=== PATIENT | female | born 1970 | race Caucasian/White ===

== ENCOUNTER 2019-06-29 09:32 | Outpatient (CLI) | payer BC, SELFPAY ==
--- NOTE | ~2019-06-29 | XR_ITS ---
EXAMINATION: XR chest 2V DATE: 06/29/2019 09:49 INDICATION: Shortness of breath TECHNIQUE: Frontal and lateral views of the chest are obtained COMPARISON: 11/04/2018 FINDINGS: The lungs are free of acute opacities. There is no pleural effusion or pneumothorax. The ca rdiomediastinal silhouette is normal. There is mild thoracic spondylosis. A right internal jugular Po rt-A-Cath ends with its tip in the superior vena cava. IMPRESSION: 1. No acute cardiopulmonary abnormality. Reviewed, dictated and finalized at location A.
== END 2019-06-29 09:33 | disposition home or self-care (01) ==
PROVIDERS: Visit Provider Internal Medicine Hematology & Oncology
DX: R06.02 Shortness of breath (principal)
CPT/HCPCS: 71046

== ENCOUNTER 2019-07-13 14:57 | Outpatient (CLI) | payer BC, SELFPAY ==
--- NOTE | ~2019-07-13 | CT_ITS ---
EXAMINATION: CT chest w con DATE: 07/13/2019 15:24 INDICATION: Shortness of breath, history of melanoma TECHNIQUE: Transaxial computed tomographic images of the chest were obtained after the administration of 75 cc of Omnipaque 350 intravenous contrast. The dose-length product (DLP) was 160.20 mGy-cm. Ite rative reconstruction was used. COMPARISON: 09/16/2018 FINDINGS: There is mild emphysema. A 2 mm nodule is noted in the left upper lobe on image 41. There i s dependent atelectasis of the lungs. No focal airspace opacity is identified. There is no pleural ef fusion or pneumothorax. A right internal jugular Port-A-Cath ends with its tip in the distal superior vena cava. No pathologically enlarged thoracic lymph nodes are identified. The heart size is normal. There is multinodular goiter of the right thyroid lobe. There is a 1.4 cm hypoattenuating area of th e liver in liver segment IV. A bone island is noted in the T6 vertebral body on the left. IMPRESSION: 1. Mild emphysema. 2. Indeterminate hypoattenuating lesion of the liver. Although finding is not definitely identified o n the comparison examination, this could be due to the absence of intravenous contrast on the PET/CT. Follow-up by CT or MRI without and with contrast in six months is recommended. 3. 2 mm left upper lobe nodule. Reviewed, dictated and finalized at location A. IMPRESSION: 1. Mild emphysema. 2. Indeterminate hypoattenuating lesion of the liver. Although finding is not d efinitely identified on the comparison examination, this could be due to the ab sence of intravenous contrast on the PET/CT. Follow-up by CT or MRI without and with contrast in six months is recommended. 3. 2 mm left upper lobe nodule.
== END 2019-07-13 14:58 | disposition home or self-care (01) ==
LOC: ANHIMG 15:02
PROVIDERS: PCP Family Medicine; Visit Provider Internal Medicine Hematology & Oncology
DX: R06.02 Shortness of breath (principal); J43.9 Emphysema, unspecified; R91.8 Other nonspecific abnormal finding of lung field
CPT/HCPCS: 71260; Q9967

== ENCOUNTER 2020-01-09 09:00 | Outpatient (CLI) | payer BC, SELFPAY ==
--- NOTE | ~2020-01-09 | CT_ITS ---
EXAMINATION: CT chest abdomen pelvis w con DATE: 01/09/2020 09:51 INDICATION: Malignant melanoma of the left lower limb TECHNIQUE: Computed tomography (CT) of the chest, abdomen, and pelvis was performed with 100 mL Omnip aque-350 intravenous contrast. Automated exposure control and iterative reconstruction technique were employed. The dose-length product was 431.77 mGy-cm. COMPARISON: PET/CT dated 09/16/2018 FINDINGS: CHEST CT: Right internal jugular central venous port catheter with distal tip at the superior cavoatrial juncti on. Mild emphysema. No interval change in a 2 mm left upper lobe nodule most likely sequela of old gr anulomatous disease. Minimal dependent atelectasis in the left bilateral lower lobes. No pulmonary ed vasu, pleural effusion or pneumothorax. Heart size is normal. No pericardial effusion. No pathological ly enlarged thoracic lymphadenopathy. Unchanged T6 bone island ABDOMEN/PELVIS CT: There are couple low-attenuation likely hepatic cysts in the left and right hepatic lobes which are w ithout significant interval change. There is additional 10 mm hypoenhancing lesion at the junction of segments 4A and 4B of the liver which appears slightly smaller than the prior study at which time it measured 1.4 cm. There is a 7 mm hypoenhancing lesion in segment 5 of the liver which appears slight ly decreased in size since the prior study at which time it measured approximately 10 mm. Gallbladder , pancreas, bilateral adrenal glands and right kidney are normal. 1.2 cm cyst at the lower pole of th e left kidney. Small region of cortical scarring at the upper pole of the left kidney. Interval decre ase in size of a now 8 mm, previously 1.7 cm hypoenhancing lesion in the caudal aspect of the spleen. No abnormal bowel wall thickening or obstruction. 3.8 and 1.7 cm fibroids in the fundus of the antev erted uterus. T-shaped IUD in expected position within the uterus. Bladder is normal. No free intrape ritoneal gas or fluid. No pathologically enlarged abdominal or pelvic lymphadenopathy. Mild bilateral hip osteoarthritis. Suspicious lytic or blastic bone lesions. IMPRESSION: 1. Decrease in size of a couple hypoenhancing hepatic lesions which could represent response to treat ment of metastatic disease. Correlate with clinical history. 2. IUD in expected position within a fibroid uterus. Reviewed, dictated and finalized at location B. IMPRESSION: 1. Decrease in size of a couple hypoenhancing hepatic lesions which could repre sent response to treatment of metastatic disease. Correlate with clinical histo ry. 2. IUD in expected position within a fibroid uterus.
== END 2020-01-09 09:01 | disposition home or self-care (01) ==
PROVIDERS: Visit Provider Internal Medicine Hematology & Oncology
DX: C43.72 Malignant melanoma of left lower limb, including hip (principal); K76.9 Liver disease, unspecified
CPT/HCPCS: 71260; 74177; Q9967

== ENCOUNTER 2020-03-12 08:43 | Outpatient (CLI) | payer BC, SELFPAY ==
--- NOTE | ~2020-03-12 | CT_ITS ---
EXAMINATION: CT abdomen pelvis w con DATE: 03/12/2020 09:26 INDICATION: Malignant neoplasm of the left lower extremity. Melanoma. TECHNIQUE: Computed tomography (CT) of the abdomen and pelvis was performed with 100 cc Omnipaque 350 intravenous contrast. The dose-length product was 408.54 mGy-cm. Automated exposure control and iter ative reconstruction technique were employed. COMPARISON: CT dated 01/09/2020 FINDINGS: Heart size normal. No significant pleural or pericardial effusion. Lung bases unremarkable. Slight interval decrease in size of hypoenhancing lesion left hepatic lobe near the falciform ligamen t measuring 9 mm compared with 12 mm on prior examination, image 47. Additional hypoenhancing lesions are stable. The spleen, pancreas, adrenal glands and kidneys are unremarkable. Gallbladder is presen t. There is an IUD in the endometrium. There is a 3 cm left adnexal cyst, likely ovarian. The spleen, pancreas, adrenal glands and right kidney are unremarkable. There is a subcentimeter hypo density of the left kidney, most likely benign cysts. Gallbladder is present. There is atherosclerosi s without evidence for aneurysm or dissection. No lymphadenopathy. Gallbladder is present. There are probable uterine fibroids. Mild lumbar spondylosis. No osteolytic or osteoblastic lesions. IMPRESSION: 1. Decreased size of hypoenhancing lesion left hepatic lobe. Additional smaller hypoenhancing lesions of the liver are stable. These findings may represent interval response to therapy of metastatic dis ease. 2: Otherwise, no significant interval change. Reviewed, dictated and finalized at location A. ATRIC TECHNICIAN IMPRESSION: 1. Decreased size of hypoenhancing lesion left hepatic lobe. Additional smaller hypoenhancing lesions of the liver are stable. These findings may represent in terval response to therapy of metastatic disease. 2: Otherwise, no significant interval change.
[2020-03-13 11:23] LABS: Estimated Glomerular Filt Rate > 60
== END 2020-03-12 08:44 | disposition home or self-care (01) ==
PROVIDERS: Visit Provider Internal Medicine Hematology & Oncology
DX: C43.72 Malignant melanoma of left lower limb, including hip (principal)
CPT/HCPCS: 74177; Q9967

== ENCOUNTER 2020-03-31 01:22 | Outpatient (CLI) | payer BC, SELFPAY ==
[2020-03-31 20:09] LABS: SARS-CoV-2 RNA PCR Negative
== END 2020-03-31 01:23 | disposition home or self-care (01) ==
LOC: ANHCOVIDDT 01:22
PROVIDERS: Visit Provider Plastic Surgery
DX: Z01.818 Encounter for other preprocedural examination (principal); Z20.828 Contact with and (suspected) exposure to other viral communicable diseases
CPT/HCPCS: C9803; U0003

== ENCOUNTER 2020-04-04 01:13 | Day surgery (SDC) | payer BC, SELFPAY ==
[2020-03-28 14:22] VITALS: BMI 26.3
--- NOTE | 2020-04-04 07:19 | WPDHPUPDATE1 ---
History and Physical Update Update Date/Time: 04/04/20 07:19 History and Physical has been reviewed, including an updated exam of the patient. There are NO changes in the patient's condition. Risks, benefits, and alternatives have been discussed and questions answered. Patient agrees to proceed with procedure.
[2020-04-04 10:19] VITALS: BP 149/91; PULSE 98; RESP 20; TEMP 36.7; O2SAT 100
[2020-04-04] MEDS: LACTATED RINGERS 1,000 ML 30 ML IV CONT (11:03)
--- NOTE | 2020-04-04 12:01 | WPDANESEPPF ---
Anes - Initial Pre Proc Eval Procedure: Operation Date: 04/04/20 13:30 Proposed Procedures p Excision Of Pigmented Neoplasm Left Medial Forefoot - Franco Holman MD Date/Time: 04/04/20 12:01 Surgeon: Franco Holman MD Pre Op Diagnosis: Pigmented Neoplasm Left Medial Forefoot Patient Data Age: 49 Gender: F Height: 5 ft 2 in Weight: 65.2 kg Last Vital Signs Temp 98.1 F 04/04/20 10:19 Pulse 98 04/04/20 10:19 Resp 20 04/04/20 10:19 BP 149/91 H 04/04/20 10:19 Pulse Ox 100 04/04/20 10:19 Allergies Allergy/AdvReac Type Severity Reaction Status Date / Time diphenhydramine Allergy Severe Itching Verified 04/04/20 11:13 ketorolac Allergy Severe Itching Verified 04/04/20 11:13 fentanyl Allergy Intermediate Hives Verified 04/04/20 11:13 adhesive tape Allergy Mild Rash Verified 04/04/20 11:13 Home Medications Medication Instructions Recorded Confirmed Type aspirin [Aspir-81] 81 mg PO DAILY 06/01/19 04/04/20 History amlodipine 10 mg PO HS 09/21/19 04/04/20 History desoximetasone [Topicort] 1 applic TOPICAL DAILY PRN 09/21/19 04/04/20 History Patient hx anesthesia problems: none Family hx anesthesia problems: none PMFSH Past Medical History Medical History (Updated 04/04/20 @ 12:01 by Aaron Pearson MD) Hypertension Malignant melanoma of left lower extremity finished chemotherapy in 08/2019 Social History Social History Smoking packs per day: 1 Smoking cigarettes per day: 20.0 Years smoked: 35 Smoking pack-years: 35.00 Smoking status: Former smoker Tobacco type: cigarettes Second hand tobacco smoke exposure: No Smoking end date: 12/28/18 Alcohol intake: never Substance use: never Substance use type: does not use Living arrangements: with family Spiritual care concerns: No Anes - Eval Final PreProcedure Day of Procedure 04/04/20 12:01 Patient weight: overweight Heart: regular rate and rhythm Lungs: clear to auscultation Airway: Mallampati scale class II Neurological: alert and oriented Last oral intake: >/= 8 hours ASA classification: III Emergent: no Anesthetic plan: proceed Anesthesia type and monitoring: general GIVS and standard monitoring Informed Consent: The patient's anesthetic plan and its attendant risks and benefits were discussed with the patient/family/POA. Questions were solicited and answers provided to the satisfaction of the patient/family/POA.
[2020-04-04] MEDS: LIDO 1%/EPINEPHRINE 1:100,000 50 ML VIAL INFILTRATE (12:38)
[2020-04-04 13:04] VITALS: BP 125/83; PULSE 103; RESP 14; O2SAT 94
--- NOTE | 2020-04-04 13:18 | PM.PROC ---
Procedure Note - Detailed Date of procedure: 04/04/20 Pre-op diagnosis: Pigmented Neoplasm Left Medial Forefoot Post-op diagnosis: same Procedure performed: 2.5 cm excision of pigmented neoplasm of left medial forefoot with simple repair 3 cm.. Description of procedure: The appropriate site on patient left medial forefoot was marked in the holding area. She was taken to the operating room and placed supine on the operating table. She was given IV sedation. The foot was prepped and draped in usual fashion. The time-out was held and confirmed. The site was marked for excision on the medial forefoot over the 1st metatarsal head. The site was locally infiltrated with 1% lidocaine with epinephrine. No tourniquet was used. The excision was carried out with a 15 blade encompassing all areas of pigmentation. Specimen sent fresh to pathology for permanent section. The wound edges were undermined 3 mm on all sides and the skin closed with interrupted 3-0 nylon sutures. She was discharged with instructions in wound care and follow-up. A prescription was sent to her pharmacy for tramadol 50 mg 8. Anesthesia: MAC Surgeon: Franco Holman MD Drains: No Packing: No Pathology: yes Complications: No immediate complications Condition: stable Disposition: same day
[2020-04-04 13:30] VITALS: BP 127/82; PULSE 87; RESP 20
[2020-04-04 14:00] VITALS: BP 138/84; PULSE 87; RESP 18
[2020-04-04 14:13] VITALS: BP 137/82; PULSE 87; RESP 20
== END 2020-04-04 14:17 | disposition home or self-care (01) ==
PROVIDERS: Visit Provider Plastic Surgery
PROC: (CPT 11423; principal; 2020-04-04 13:30)
DX: S90.822A Blister (nonthermal), left foot, initial encounter (principal); X58.XXXA Exposure to other specified factors, initial encounter; I10 Essential (primary) hypertension; Z87.891 Personal history of nicotine dependence; Z85.820 Personal history of malignant melanoma of skin; Z92.21 Personal history of antineoplastic chemotherapy
CPT/HCPCS: 11423; 88305; A9270; J1100; J2250; J2405; J2704; J3010; J7120

== ENCOUNTER 2020-07-13 07:25 | Outpatient (CLI) | payer BC, SELFPAY ==
--- NOTE | ~2020-07-13 | CT_ITS ---
EXAMINATION: CT abdomen pelvis w con INDICATION: History of malignant melanoma of the left lower extremity including hip TECHNIQUE: Computed tomographic images of the abdomen and pelvis were obtained after the administrati on of 100 cc of Omnipaque 350 intravenous contrast. The dose-length product (DLP) was 338.99 mGy-cm. Automated exposure control and iterative reconstruction technique were employed. COMPARISON: 03/12/2020 FINDINGS: Minimal dependent atelectasis is present in the lung bases. The heart size is normal. There is a stable 7 mm hypoattenuating lesion of the right hepatic lobe on image 36. A stable 10 mm lesion is seen at the junction of liver segments Nancy and IVb on image 46. There is a cyst in the left hepat ic lobe. No new liver lesions are identified. The spleen, pancreas, gallbladder, and adrenal glands a re normal. The right kidney is unremarkable. There is a 1.3 cm cyst in the lower pole of the left kid alycia. There is calcified atherosclerosis of the aorta and many of the other arteries. No pathologicall y enlarged abdominal or pelvic lymph nodes are identified. There is no free intraperitoneal gas or ev idence of bowel obstruction. Surgical changes are noted in the left groin area. An IUD is present in the uterus in expected position. There is a fibroid in the anterior body of the uterus. There is a fa t-containing umbilical hernia. IMPRESSION: 1. Stable liver lesions. Treated metastatic disease is a consideration. Reviewed, dictated and finalized at location B.
[2020-07-13 08:06] LABS: Estimated Glomerular Filt Rate > 60
== END 2020-07-13 07:26 | disposition home or self-care (01) ==
PROVIDERS: Visit Provider Internal Medicine Hematology & Oncology
DX: C43.72 Malignant melanoma of left lower limb, including hip (principal); K76.89 Other specified diseases of liver
CPT/HCPCS: 74177; Q9967

== ENCOUNTER 2020-10-08 07:51 | Outpatient (CLI) | payer BC, SELFPAY ==
--- NOTE | ~2020-10-08 | CT_ITS ---
EXAMINATION: CT abdomen pelvis w con DATE: 10/08/2020 08:42 INDICATION: Malignant melanoma of left lower extremity. TECHNIQUE: Computed tomography (CT) of the abdomen and pelvis was performed with 100 mL Omnipaque 350 intravenous contrast. Automated exposure control and iterative reconstruction technique were employe d. The dose-length product was 388.23 mGy-cm. COMPARISON: CT abdomen and pelvis 07/13/2020, 01/09/20, PET/CT 09/16/18 FINDINGS: The visualized portions of the lung bases demonstrate mild atelectasis. No pleural effusion . The heart size is normal. No pericardial effusion. There is a 12 mm lesion in left hepatic lobe wit hout change from 09/16/2018 without increased activity on prior PET, likely benign. There are low-atte nuation lesions in the liver measuring up to 7 mm, stable from 01/09/20, likely benign. The gallbladd er, spleen, pancreas, adrenal glands, and right kidney are normal. There is a 12 mm cyst in left kidn ey. There is an intrauterine device in expected position. There is a 4.5 cm fibroid in the uterus. Th ere are no dilated loops of bowel. The appendix is not visualized. There are no pathologically enlarg ed lymph nodes. There is no free intraperitoneal fluid. There is mild lumbar spondylosis. IMPRESSION: 1. No specific evidence of metastatic disease. Reviewed, dictated and finalized at location A.
== END 2020-10-08 07:52 | disposition home or self-care (01) ==
PROVIDERS: Visit Provider Internal Medicine Hematology & Oncology
DX: C43.72 Malignant melanoma of left lower limb, including hip (principal)
CPT/HCPCS: 74177; Q9967

== ENCOUNTER 2021-01-30 07:43 | Outpatient (CLI) | payer BC, SELFPAY ==
--- NOTE | ~2021-01-30 | CT_ITS ---
EXAMINATION: CT abdomen pelvis w con INDICATION: Malignant melanoma of the left lower extremity TECHNIQUE: Computed tomographic images of the abdomen and pelvis were obtained after the administrati on of 100 cc of Omnipaque 350 intravenous contrast. The dose-length product (DLP) was 454.03 mGy-cm. Automated exposure control and iterative reconstruction technique were employed. COMPARISON: 10/08/2020 FINDINGS: The lung bases are clear. The heart size is normal. There is a stable cyst in the left hepa tic lobe. A stable 10 mm lesion is present at the junction of liver segments Nancy and IVb. There is a stable 7 mm hypoattenuating lesion of the right hepatic lobe on image 48. No new liver lesions are id entified. The spleen, pancreas, gallbladder, and adrenal glands are normal. The right kidney is unrem arkable. There is a 1.2 cm cyst of the left kidney lower pole. No pathologically enlarged abdominal o r pelvic lymph nodes are identified. There is no free intraperitoneal gas or evidence of bowel obstru ction. Enhancing uterine fibroids measure up to 4 cm. An IUD is in expected position. Surgical clips are noted anteriorly in the left proximal thigh. There is mild lumbar spondylosis. IMPRESSION: 1. No definite evidence of metastatic disease. Reviewed, dictated and finalized at location B.
== END 2021-01-30 07:44 | disposition home or self-care (01) ==
LOC: ANHIMG 07:47
PROVIDERS: Visit Provider Internal Medicine Hematology & Oncology
DX: C43.72 Malignant melanoma of left lower limb, including hip (principal)
CPT/HCPCS: 74177; Q9967

== ENCOUNTER 2021-02-18 02:04 | Day surgery (SDC) | payer BC, SELFPAY ==
[2021-02-11 14:23] VITALS: BMI 27.4
--- NOTE | 2021-02-11 14:24 | PC.NURSE ---
Report to the Outpatient Waiting Room, entrance under the green pavilion located off [facility], at time _0900 on date _02/18/21 . OR Time: ____1000____. - You and your visitor will be asked a series of questions to screen for COVID 19 for your protection. - A mask is required within the hospital. - Only one visitor is allowed at this time. Patient visitors will be guided where to wait when not with patient. Preoperative COVID Testing Requirements: No COVID Test needed if: (proof is required; if not received patient will have Rapid Test prior to entry) - Patient has received COVID Vaccine at least 14 days prior to procedure date or - Patient has positive COVID test result within last 90 days of surgery date. COVID Test needed if above criteria is not met If not COVID vaccinated a COVID test must be conducted within 72 hours of surgery and patient is asked to isolate self from time of testing until procedure. You will go to the [facility] for your COVID testing. The [facility] is located at the corner of [address] from [facility]. You will only be called if COVID results are positive and your surgeon may reschedule your elective surgery date. Patients may have clear liquids (water, carbonated beverages, clear teas, apple juice) until 3 hours prior to surgery with a maximum of 20 ounces. - No food from midnight until time of surgery - Infants may have breast milk until 4 hours before surgery, infant formula 6 hours prior to surgery. - Children will be allowed to drink immediately following surgery. If applicable, please bring a bottle or sippy cup to assist with drinking. Juice, water, soda, and popsicles are readily available. For infants on formula, please bring formula the day of surgery. Pacifiers are allowed. Take the following medications with a SIP of water the morning of surgery: __none DOS Medications to discontinue per physician pt calling Dr. Tinooc office about ASA 81 mg Date to take last dose Please no make-up, nail portuguese, hairspray, perfume, deodorant, or body powder the day of surgery. No jewelry (including any body piercings) or valuables the day of surgery, leave them at home. Please take a shower or bath the night before, or the morning of, surgery with an antibacterial soap. Wear comfortable, loose fitting clothing. Children are encouraged to wear pajamas. - Jewelry must be removed prior to entering the operating room. Rings and piercings that are not removed may be cut off. - The hospital will not accept responsibility for valuables. - Please leave all valuables, including medications, at home the day of surgery. If you are going home after surgery, a licensed shuttle driver must drive you home. - NO public transportation without another adult. - We recommend that an adult stay with you for 24 hours following discharge. - We also recommend that you do not drive, make important decision, drink alcoholic beverages, or take any drugs that were not prescribed by your health care provider for at least 24 hours after your discharge time. For Pediatric surgeries, we recommend two adults accompany the child home (only one inside the building at this time). Follow any additional instructions given to you from your surgeon. Telephone instructions given to ___patient and asked if any additional questions and then verbalized understanding. Patient advised to call surgeon office or pre surgery nurse liaison [phone] if any additional questions.
[2021-02-18 06:30] VITALS: BP 184/95; PULSE 86; RESP 16; TEMP 36.4; O2SAT 100
--- NOTE | 2021-02-18 07:12 | PM.HPGS ---
History of Present Illness History of Present Illness Consent: Risks, benefits, and alternatives of removal of a Port-A-Cath have been discussed and questions answered. Patient agrees to proceed with procedure. Chief complaint: malignant melanoma left lower extremity Narrative: Chelsy Clark is a 50 year old female who approximately 2 years ago developed a melanoma on her left lower extremity. She received a Port-A-Cath for immune therapy and has now gone for several checkups with Dr. Myers without signs of recurrence. She presents at this time for Port-A-Cath removal under local anesthetic. Her original diagnosis was a T2a, N1b, M0 stage IIIA melanoma which was on the bottom of her left foot 1st diagnosed and excised with a sentinel lymph node positive by her ankle on 2018 she apparently also subsequently had a lymph node found in the groin area which was negative. She subsequently had adjuvant immunotherapy with Dr. Myers through August of 2019. Review of Systems Constitutional: Constitutional: Reports no additional constitutional complaints, Reports fatigue and Denies malaise Eyes: Eyes: Denies change in vision and Denies loss of vision ENT: Reports Normal hearing present, Denies change in voice, Denies dizziness, Denies hoarseness and Denies sore throat Cardiovascular: Cardiovascular: Denies chest pain, Denies leg edema and Denies dyspnea Respiratory: Respiratory: Denies cough, Denies dyspnea and Denies wheezing Gastrointestinal: Gastrointestinal: Denies hematochezia, Denies change in bowel habits and Denies heartburn Genitourinary: Genitourinary: Denies urinary frequency and Denies urinary incontinence Integumentary/Breasts: Comments: History of malignant melanoma on the left lower extremity status post Neurologic: Reports Normal hearing present, Denies confusion, Denies dizziness, Denies loss of vision, Denies memory loss and Denies seizure-like activity Psychiatric: Psychiatric: Denies confusion, Denies depression and Denies memory loss Endocrine: Endocrine: Denies cold intolerance and Reports fatigue Hematologic/Lymphatic: Hematologic/Lymphatic: Denies easy bleeding and Denies easy bruising Allergic/Immunologic: Allergic/Immunologic: Denies wheezing PMFSH Past Medical History Medical History (Updated 02/18/21 @ 13:33 by Mervin Tinoco MD) Hypertension Malignant melanoma of left lower extremity finished chemotherapy in 08/2019 Port-A-Cath in place Social History Social History Smoking packs per day: 1 Smoking cigarettes per day: 20.0 Years smoked: 30 Smoking pack-years: 30.00 Smoking status: Former smoker Tobacco type: cigarettes Second hand tobacco smoke exposure: No Smoking end date: 01/02/19 Alcohol intake: never Substance use: never Substance use type: does not use Living arrangements: with family Spiritual care concerns: No Meds Home Medications and Allergies Home Medications Medication Instructions Recorded Confirmed Type aspirin [Aspir-81] 81 mg PO DAILY 06/01/19 02/11/21 History amlodipine 10 mg PO HS 09/21/19 02/11/21 History hydrocodone-acetaminophen 1 tablet PO Q6H PRN #7 tablet 02/18/21 Rx Allergies Allergy/AdvReac Type Severity Reaction Status Date / Time diphenhydramine Allergy Severe Itching Verified 02/18/21 06:34 ketorolac Allergy Severe Itching Verified 02/18/21 06:34 fentanyl Allergy Intermediate Hives Verified 02/18/21 06:34 adhesive tape Allergy Mild Rash Verified 02/18/21 06:34 Vital Signs Vital Signs - 24 hr 02/18/21 06:30 Temperature 36.4 C Pulse Rate 86 Respiratory Rate 16 Blood Pressure 184/95 H Pulse Oximetry 100 Exam Const: General: cooperative, healthy appearing, no acute distress, well developed and alert; No confusion Nutritional Appearance: well nourished Orientation/consciousness: patient oriented x3 and No confusion Limitations: no limitations HENMT: Head: normal to inspection, normoc
--- NOTE | 2021-02-18 07:23 | WPDHPUPDATE1 ---
History and Physical Update Update Date/Time: 02/18/21 07:23 History and Physical has been reviewed, including an updated exam of the patient. There are NO changes in the patient's condition. Risks, benefits, and alternatives have been discussed and questions answered. Patient agrees to proceed with procedure.
[2021-02-18 07:40] VITALS: BP 169/110; PULSE 80; RESP 16; O2SAT 95
[2021-02-18 07:50] VITALS: BP 178/96; PULSE 81; RESP 18; O2SAT 95
[2021-02-18] MEDS: LIDO 2%/EPINEPHRINE 1:100,000 20 ML VIAL INFILTRATE (07:59)
[2021-02-18 08:00] VITALS: BP 155/88; PULSE 84; RESP 18; O2SAT 95
[2021-02-18 08:10] VITALS: BP 158/89; PULSE 89; RESP 16; O2SAT 98
[2021-02-18 08:14] VITALS: BP 158/95; PULSE 86; RESP 20; O2SAT 100
--- NOTE | 2021-02-18 08:30 | P.OP_ITS ---
Procedure Note - Detailed Date of Procedure 02/18/21 Pre-op Diagnosis malignant melanoma left lower extremity Post-op Diagnosis same Procedure Performed Removal of Bernabe-cath Surgeon Mervin Tinoco MD Route Service Representative none Anesthesia MAC and local (2% Xylocaine with Epi) Indications Patient has had a Port-A-Cath in for immunotherapy in the past. Now no longer in use. Plan to remove under local anesthetic. Findings Unremarkable Bard port and catheter intact upon removal. The 2 Prolene sutures used to hold it in place also removed this date. Description of Procedure Prior to the procedure the patient was seen in the holding area and the area of proposed surgery was marked. All questions were answered and the patient wished to proceed with removal of the Port-A-Cath. The patient was brought to the operating room and placed supine. The entire right neck, chest, and shoulder were prepped with chlorhexidine. The area was draped off. Time-out was performed confirming patient and site of surgery. Following this a 15 blade knife was used to make incision directly on the scar from the previous port placement. This was done after infiltrating local anesthetic into the area of and inferior to the scar and into the area of the pocket containing the port to some degree using 1% xylocaine with epinephrine. Following this we carefully dissected down to the junction of the port and catheter. Bovie cautery with needle-tip was used to carefully incise the capsule around the port and free up the scar tissue around the junction of the port and catheter. Two Prolene sutures that were holding the port to the underlying fascia were carefully excised with a 15 blade knife and mosquito hemostats. Following this the port was brought up and out of the pocket. Then watching the patient's respirations I carefully removed the catheter in one smooth pull while applying pressure in the lower right neck area at the catheter exit site as the patient was breathing out. Pressure was held for 1 minute. I used Bovie cautery on some the subcutaneous tissues as we waited for good clotting. Again hemostasis was checked in the wound using Bovie cautery for superficial hemostasis in the subcutaneous tissues. Following this closure was obtained with 2 layers. I used buried subcutaneous sutures of 3-0 Vicryl in the subcutaneous layer followed by a running subcuticular closure of 4-0 Monocryl on the skin. Patient tolerated the procedure well. Estimated blood loss was 2 cc Sponge, needle, and instrument counts were correct at the end the procedure and patient was taken to the outpatient recovery area in good condition. Implants none Estimated Blood Loss 2 Drains No Packing No Pathology none sent Complications No immediate complications Condition stable Disposition same day
== END 2021-02-18 08:36 | disposition home or self-care (01) ==
PROVIDERS: Visit Provider Surgery
PROC: (CPT 36589; principal; 2021-02-18 07:30)
DX: Z45.2 Encounter for adjustment and management of vascular access device (principal); Z85.820 Personal history of malignant melanoma of skin; I10 Essential (primary) hypertension; Z87.891 Personal history of nicotine dependence; Z92.21 Personal history of antineoplastic chemotherapy; Z79.82 Long term (current) use of aspirin
CPT/HCPCS: 36590